=== PATIENT | female | born 1990 | race Caucasian/White ===

== ENCOUNTER 2021-11-29 11:32 | Outpatient (REF) | payer OTHER, SELFPAY ==
--- NOTE | 2021-11-29 11:00 | SKI_PTH ---
PATIENT: Ralph Su LOC: [facility] U#:[id number] AGE/SX: 31/F ROOM: RE11/29/[address]: Michael Guerrero : 1990 BED: DIS: 11/29/2021 SPEC #: [id number] RECD: 11/29/21 18:29 STATUS: MICKY REJesus #: [id number] NELA: 11/29/21 11:[address]: Michael Guerrero DEPT: Surgical Specimen RECD BY: Aishwarya Oliver ENTERED: 11/29/21 18:30 SP TYPE: AUGUSTINA GRIFFITH DR: Jinny Snell Tissues: 1 - SKIN BIOPSY(SHAVE/PUNCH) Procedures: SKIN LEVEL 4 SPECIAL STAIN 1 Comments: [id number]
--- NOTE | 2021-11-29 11:10 | PAPFT_PTH ---
PATIENT: Ralph Su LOC: [facility]#:[id number] AGE/SX: 31/F ROOM: RE11/29/[address]: Michael Guerrero : 1990 BED: DIS: 11/29/2021 SPEC #: [id number] RECD: 11/29/21 18:31 STATUS: MICKY REQ #: [id number] NELA: 11/29/21 11:[address]: Michael Guerrero [facility]PT[facility] Cytology RECD BY: Aishwarya Oliver ENTERED: 11/29/21 18:32 SP TYPE: PAPFT OTHR DR: Jinny Snell Tissues: 1 - CX/ENDOCX FOR PAP SMEARS Procedures: PAP THIN PREP/[facility] Screening HPV DNA PROBE Comments: [id number]
== END 2021-11-29 11:33 | disposition home or self-care (01) ==
LOC: NCHCN 11:32
PROVIDERS: PCP Nurse Practitioner Family; Visit Provider Family Medicine
DX: L30.8 Other specified dermatitis (principal); Z12.4 Encounter for screening for malignant neoplasm of cervix; Z11.51 Encounter for screening for human papillomavirus (HPV)
CPT/HCPCS: 88142; 87624; 88305; 88312

== ENCOUNTER 2023-03-06 03:10 | Outpatient (CLI) | payer OTHER, SELFPAY ==
[2023-03-06 12:07] LABS: TSH (W/Ref FT4) 1.26 uIU/mL (0.36-3.74)
== END 2023-03-06 03:11 | disposition home or self-care (01) ==
LOC: LBO 03:10
PROVIDERS: PCP Nurse Practitioner Family; Visit Provider Nurse Practitioner Women's Health
DX: N92.5 Other specified irregular menstruation; N93.8 Other specified abnormal uterine and vaginal bleeding
CPT/HCPCS: 36415; 84443

== ENCOUNTER 2023-05-16 21:44 | Outpatient (REF) | payer OTHER, SELFPAY ==
[2023-05-16 21:59] LABS: ALT 16 U/L (14-59); AST 20 U/L (15-37); Albumin 4.2 g/dL (3.4-5.0); Alkaline Phosphatase 55 U/L (46-116); Anion Gap 6.9 mmol/L (3-11); BUN 13 mg/dL (7-18); Bilirubin, Total 0.3 mg/dL (0.2-1.0); CO2 28.1 mmol/L (21.0-32.0); CREATININE 0.9 mg/dL (0.55-1.02); Calcium 8.7 mg/dL (8.5-10.1); Chloride 103 mmol/L (98-107); Estimated GFR 86.57 (mL/min/1.73m2); Glucose 96 mg/dL (74-106); Potassium 4.2 mmol/L (3.5-5.1); Sodium 138 mmol/L (136-145); Total Protein 7.7 g/dL (6.4-8.2)
== END 2023-05-16 21:45 | disposition home or self-care (01) ==
LOC: NCHCN 21:44
PROVIDERS: PCP Nurse Practitioner Family; Visit Provider Nurse Practitioner Family
DX: Z00.00 Encounter for general adult medical examination without abnormal findings (principal); F90.9 Attention-deficit hyperactivity disorder, unspecified type; L70.0 Acne vulgaris; Z51.81 Encounter for therapeutic drug level monitoring; Z13.1 Encounter for screening for diabetes mellitus
CPT/HCPCS: 80053

== ENCOUNTER 2024-02-06 16:03 | Outpatient (CLI) | payer OTHER, SELFPAY ==
[2024-02-06 16:31] LABS: ESR 6 mm/hr (0-20)
[2024-02-06 17:11] LABS: C-Reactive Protein < 0.50 mg/dL (<or=0.5)
[2024-02-07 16:56] LABS: Rheumatoid Factor <8.6 IU/mL (<12.0)
[2024-02-10 09:47] LABS: Cyclic Citrullinated Peptide <2.5 U/mL (<5.0)
[2024-02-10 15:16] LABS: RNP Ab, IgG <6.0 CU (<20.0); Ro60 Ab, IgG <7.0 CU (<20.0); SS-A/Ro, IgG <2.3 CU (<20.0); SS-B (La) Ab, IgG <3.3 CU (<20.0); Sm (Smith) Ab, IgG <8.0 CU (<20.0)
[2024-02-10 15:58] LABS: ANA Interpretation Negative (Negative)
== END 2024-02-06 16:04 | disposition home or self-care (01) ==
LOC: LBO 16:04
PROVIDERS: PCP Nurse Practitioner Family; Visit Provider Nurse Practitioner Family
DX: R21 Rash and other nonspecific skin eruption (principal); R68.89 Other general symptoms and signs
CPT/HCPCS: 36415; 85652; 86200; 86038; 86140; 86235; 86431

== ENCOUNTER 2025-04-13 17:23 | Outpatient (REF) | payer OTHER, SELFPAY | END 2025-04-13 17:24 | disposition home or self-care (01) | LOC: LBN 17:23 | PROVIDERS: PCP Nurse Practitioner Family; Visit Provider Nurse Practitioner Family | DX: J02.9 Acute pharyngitis, unspecified (principal) | CPT/HCPCS: 87070 ==